=== PATIENT | male | born 1995 | race Caucasian/White ===

== ENCOUNTER 2017-01-26 19:56 | Emergency (ER) | payer MEDICARE, MEDICAID ==
--- NOTE | 2017-01-26 20:14 | Emergency Department Record ---
History of Present Illness - General Chief complaint: Pain Stated complaint: RT ELBOW PAIN Time Seen by Provider: 01/26/17 20:11 Source: Patient Mode of Arrival: Ambulatory - History of Present Illness Initial comments: Patient was on a trampoline prior to arrival when he flipped and collided somehow with another friend, injuring his elbow. He denies other injuries. PMH renal failure on dialysis. MD Complaint: Extremity pain Onset/Timin -: Minutes(s) Location: Right, Elbow Severity scale (1-10): 10 Quality: Aching Consistency: Constant, Getting worse Improves with: Nothing Worsens with: Nothing Associated Symptoms: Denies other symptoms - Related Data Home Medications Medication Instructions Recorded Confirmed Last Taken Acetaminophen 650 mg PO Q4-6HR tab 02/23/16 01/26/17 Unknown Bumetanide 1 mg PO QD tab 02/23/16 01/26/17 06/17/16 Hydrocodone/Acetaminophen [[place] 1 tab PO Q4-6HR tab 02/23/16 01/26/17 Unknown 5mg/325mg] Labetalol HCl 300 mg PO TID tab 02/23/16 01/26/17 06/17/16 Losartan Potassium 100 mg PO QD tab 02/23/16 01/26/17 06/17/16 Minoxidil 5 mg PO BID tab 02/23/16 01/26/17 06/17/16 Atorvastatin Calcium [Lipitor] 20 mg PO QHS 06/17/16 01/26/17 06/16/16 Lacosamide [Vimpat] 100 mg PO DAILY 06/17/16 01/26/17 06/17/16 Previous Rx's Medication Instructions Recorded Hydrocodone/Acetaminophen [[place] 1 each PO Q6HR PRN #14 tablet 01/26/17 5-325 Tablet] Allergies Allergy/AdvReac Type Severity Reaction Status Date / Time No Known Allergies Allergy HYPERSENSIT Verified 06/17/16 17:57 IVITY Travel Screening - Travel/Exposure Within Last 30 Days Have you traveled within the last 30 days?: No Review of Systems Reviewed: No additional complaints except as noted below Constitutional: Reports: As per HPI. Denies: Chills, Fever, Malaise, Night sweats, Weakness, Weight change Eyes: Reports: As per HPI. Denies: Eye discharge, Eye pain, Photophobia, Vision change ENT: Reports: As per HPI. Denies: Congestion, Dental pain, Ear pain, Epistaxis , Hearing loss, Throat pain Respiratory: Reports: As per HPI. Denies: Cough, Dyspnea, Hemoptysis, Stridor, Wheezes Cardiovascular: Reports: As per HPI. Denies: Arrhythmia, Chest pain, Dyspnea on exertion, Edema, Murmurs, Orthopnea, Palpitations, Paroxysmal nocturnal dyspnea, Rheumatic Fever, Syncope Endocrine: Reports: As per HPI. Denies: Fatigue, Heat or cold intolerance, Polydipsia, Polyuria Gastrointestinal: Reports: As per HPI. Denies: Abdominal pain, Constipation, Diarrhea, Hematemesis, Hematochezia, Melena, Nausea, Vomiting Genitourinary: Reports: As per HPI. Denies: Dysuria, Frequency, Hematuria, Incontinence, Retention, Testicular pain, Testicular mass, Urgency Musculoskeletal: Reports: As per HPI. Denies: Arthralgia, Back pain, Gout, Joint swelling, Myalgia, Neck pain Skin: Reports: As per HPI. Denies: Bruising, Change in color, Change in hair/ nails, Lesions, Pruritus, Rash Neurological: Reports: As per HPI. Denies: Abnormal gait, Confusion, Headache, Numbness, Paresthesias, Seizure, Tingling, Tremors, Vertigo, Weakness Psychiatric: Reports: As per HPI. Denies: Anxiety, Auditory hallucinations, Depression, Homicidal thoughts, Suicidal thoughts, Visual hallucinations Hematological/Lymphatic: Reports: As per HPI. Denies: Anemia, Blood Clots, Easy bleeding, Easy bruising, Swollen glands Past Medical History - SOCIAL HISTORY Smoking Status: Never smoker Alcohol Use: None Drug Use: None - RESPIRATORY Hx Respiratory Disorders: No - CARDIOVASCULAR Hx Cardio Disorders: Yes Hx Hypertension: Yes - NEURO Hx Neuro Disorders: No - GI Hx GI Disorders: No - Hx Genitourinary Disorders: Yes Hx Renal Disease: Yes - ENDOCRINE Hx Endocrine Disorders: No - MUSCULOSKELETAL Hx Musculoskeletal Disorders: No - PSYCH Hx Psych Problems: No - HEMATOLOGY/ONCOLOGY Hx Hematology/Oncology Disorders: No Family Medical History Any Significant Family History?: No Physical Exam - General General Appearance: Alert, Oriented x3, Cooperative, No acute distress - Head Head exam: Normal inspection - Eye Eye exam: Normal appearance, PERRL Pupils: Normal accommodation - ENT ENT exam: Normal exam, Mucous membranes moist, Normal external ear exam, Normal orophraynx, TM's normal bilaterally Ear exam: Normal external inspection. negative: External canal tenderness Nasal Exam: Normal inspection. negative: Discharge, Sinus tenderness Mouth exam: Normal external inspection, Tongue normal Teeth exam: Normal inspection. negative: Dental caries Throat exam: Normal inspection. negative: Tonsillar erythema, Tonsillar exudate - Neck Neck exam: Normal inspection, Full ROM. negative: Tenderness - Respiratory Respiratory exam: Normal lung sounds bilaterally. negative: Accessory muscle use, Chest wall tenderness, Respiratory distress - Cardiovascular Cardiovascular Exam: Regular rate, Normal rhythm, Normal heart sounds - GI/Abdominal GI/Abdominal exam: Soft, Normal bowel sounds. negative: Tenderness - Rectal Rectal exam: Deferred - exam: Deferred - Extremities Extremities exam: Normal inspection, Full ROM, Normal capillary refill, Tenderness (Right elbow tender diffusely with inability to perform ROM due to pain. Distal pulses, motor strenth and cap refill intact. Wrist and shoulder nontender.) - Back Back exam: Reports: Normal inspection, Full ROM. Denies: Muscle spasm, Rash noted, Tenderness - Neurological Neurological exam: Alert, Normal gait, Oriented X3, Reflexes normal - Psychiatric Psychiatric exam: Normal affect, Normal mood - Skin Skin exam: Dry, Intact, Normal color, Warm Medical Decision Making - Management Options MDM Management: Additional Work-up Planned (e.g. ADM/Transfer/OP Study) ( Orthopedic consult Dr. Frederick in specialty clinic.) - Data Complexity [facility] Data: X-Ray Ordered and/or Reviewed (Right elbow: Anterior AND posterior fat pad sign indicating likely radial head fx; MRI may be obtained at a later time if indicated. Per radiologist.) Disposition Disposition: Discharge Clinical Impression: Elbow fracture, right Qualifiers: Encounter type: initial encounter Fracture type: closed Qualified Code(s): S42.401A - Unspecified fracture of lower end of right humerus, initial encounter for closed fracture Disposition: Home, Self-Care Condition: (1) Good Instructions: Elbow Fracture (ED) Additional Instructions: Splint, sling. Ice, elevate first 48 hours. Lignite as directed as needed for pain. Tylenol as directed for lesser pain as needed. Do not take both of these meds together as they both contain tylenol. Follow up with Dr. Frederick in Specialty clinic as instructed--bring xray disc with you to appointment. Prescriptions: Hydrocodone/Acetaminophen [[place] 5-325 Tablet] 1 each PO Q6HR PRN #14 tablet PRN Reason: Pain - Severe (8-10) Referrals: JOCELYN FREDERICK [DOCTOR OF OSTEOPATH] - Forms: Patient Portal Access
[2017-01-26] MEDS ORDERED: HYDROCODONE/APAP 10/325 TABLET PO ONE (20:47)
[2017-01-26] MEDS ORDERED: HYDROCODONE/APAP 5/325MG TABLET PO ONE (21:43)
--- NOTE | 2017-01-28 10:33 | RADIOLOGY REPORT ---
EXAM: RIGHT ELBOW, THREE VIEWS HISTORY: PATIENT WAS ON A TRAMPOLINE AND SUSTAINED INJURED. TECHNIQUE: Three views of the right elbow were provided without comparison studies. FINDINGS: Significant antecubital and olecranon fat pad prominence is noted. There is a questionable nondisplaced fracture of the radial head. Enthesophytes are identified within the region posterior to the olecranon. IMPRESSION: SIGNIFICANT ANTECUBITAL AND OLECRANON FAT PAD PROMINENCE IS NOTED WITH QUESTIONABLE FRACTURE OF THE RADIAL HEAD. IF THERE IS FURTHER CLINICAL CONCERN THEN MRI OF THE RIGHT ELBOW CAN BE OBTAINED FOR FURTHER EVALUATION. JOB NUMBER: [id number] MTDD
== END 2017-01-26 21:59 | disposition home or self-care (01) ==
LOC: ER 19:56
DX: S52.121A Displaced fracture of head of right radius, initial encounter for closed fracture (principal); W51.XXXA Accidental striking against or bumped into by another person, initial encounter; Y93.44 Activity, trampolining
CPT/HCPCS: 29105; 99283 ×2; 73080; J3490

== ENCOUNTER 2017-01-29 04:29 | Emergency (ER) | payer MEDICARE, MEDICAID ==
[2017-01-29] MEDS ORDERED: PROMETHAZINE HCL 25 MG/ML VIAL IM ONE (04:52)
[2017-01-29] MEDS ORDERED: HYDROMORPHONE HCL 1 MG/ML CPJ IM ONE (04:52)
--- NOTE | 2017-01-29 04:58 | Emergency Department Record ---
History of Present Illness - General Chief Complaint: Recheck - Other Stated Complaint: PAIN Time Seen by Provider: 01/29/17 04:45 Source: Patient Mode of arrival: Ambulatory Limitations: No limitations - History of Present Illness Initial Comments: pt has pain from radial head fx on saturday. he is to f/u w dr agustin BUSTAMANTE Complaint: Other Onset/Timin -: Days(s) Initial Visit For: Other Returns Today for: Other Symptoms Since Prior Visit: Worsening pain Associated Symptoms: None Treatments Prior to Arrival: Splint(s) - Related Data Home Medications Medication Instructions Recorded Confirmed Last Taken Acetaminophen 650 mg PO Q4-6HR tab 02/23/16 01/29/17 Unknown Bumetanide 1 mg PO QD tab 02/23/16 01/29/17 06/17/16 Hydrocodone/Acetaminophen [[place] 1 tab PO Q4-6HR tab 02/23/16 01/29/17 Unknown 5mg/325mg] Labetalol HCl 300 mg PO TID tab 02/23/16 01/29/17 06/17/16 Losartan Potassium 100 mg PO QD tab 02/23/16 01/29/17 06/17/16 Minoxidil 5 mg PO BID tab 02/23/16 01/29/17 06/17/16 Atorvastatin Calcium [Lipitor] 20 mg PO QHS 06/17/16 01/29/17 06/16/16 Lacosamide [Vimpat] 100 mg PO DAILY 06/17/16 01/29/17 06/17/16 Allergies Allergy/AdvReac Type Severity Reaction Status Date / Time No Known Allergies Allergy HYPERSENSIT Verified 06/17/16 17:57 IVITY Travel Screening - Travel/Exposure Within Last 30 Days Have you traveled within the last 30 days?: No Review of Systems Reviewed: No additional complaints except as noted below Constitutional: Reports: As per HPI. Denies: Chills, Fever, Malaise, Night sweats, Weakness, Weight change Eyes: Reports: As per HPI. Denies: Eye discharge, Eye pain, Photophobia, Vision change ENT: Reports: As per HPI. Denies: Congestion, Dental pain, Ear pain, Epistaxis , Hearing loss, Throat pain Respiratory: Reports: As per HPI. Denies: Cough, Dyspnea, Hemoptysis, Stridor, Wheezes Cardiovascular: Reports: As per HPI. Denies: Arrhythmia, Chest pain, Dyspnea on exertion, Edema, Murmurs, Orthopnea, Palpitations, Paroxysmal nocturnal dyspnea, Rheumatic Fever, Syncope Endocrine: Reports: As per HPI. Denies: Fatigue, Heat or cold intolerance, Polydipsia, Polyuria Gastrointestinal: Reports: As per HPI. Denies: Abdominal pain, Constipation, Diarrhea, Hematemesis, Hematochezia, Melena, Nausea, Vomiting Genitourinary: Reports: As per HPI. Denies: Dysuria, Frequency, Hematuria, Incontinence, Retention, Testicular pain, Testicular mass, Urgency Musculoskeletal: Reports: As per HPI. Denies: Arthralgia, Back pain, Gout, Joint swelling, Myalgia, Neck pain Skin: Reports: As per HPI. Denies: Bruising, Change in color, Change in hair/ nails, Lesions, Pruritus, Rash Neurological: Reports: As per HPI. Denies: Abnormal gait, Confusion, Headache, Numbness, Paresthesias, Seizure, Tingling, Tremors, Vertigo, Weakness Psychiatric: Reports: As per HPI. Denies: Anxiety, Auditory hallucinations, Depression, Homicidal thoughts, Suicidal thoughts, Visual hallucinations Hematological/Lymphatic: Reports: As per HPI. Denies: Anemia, Blood Clots, Easy bleeding, Easy bruising, Swollen glands Past Medical History - SOCIAL HISTORY Smoking Status: Never smoker - RESPIRATORY Hx Respiratory Disorders: No - CARDIOVASCULAR Hx Cardio Disorders: Yes Hx Hypertension: Yes - NEURO Hx Neuro Disorders: No - GI Hx GI Disorders: No - Hx Genitourinary Disorders: Yes Hx Renal Disease: Yes - ENDOCRINE Hx Endocrine Disorders: No - MUSCULOSKELETAL Hx Musculoskeletal Disorders: No - PSYCH Hx Psych Problems: No - HEMATOLOGY/ONCOLOGY Hx Hematology/Oncology Disorders: No Family Medical History Any Significant Family History?: No Physical Exam - General General Appearance: Alert, Oriented x3, Cooperative, Mild distress - Head Head exam: Normal inspection - Eye Eye exam: Normal appearance, PERRL, EOMI Pupils: Normal accommodation - ENT ENT exam: Normal exam, Mucous membranes moist, Normal external ear exam, Normal orophraynx, TM's normal bilaterally Ear exam: Normal external inspection. negative: External canal tenderness Nasal Exam: Normal inspection. negative: Discharge, Sinus tenderness Mouth exam: Normal external inspection, Tongue normal Teeth exam: Normal inspection. negative: Dental caries Throat exam: Normal inspection. negative: Tonsillar erythema, Tonsillar exudate - Neck Neck exam: Normal inspection, Full ROM. negative: Tenderness - Respiratory Respiratory exam: Normal lung sounds bilaterally. negative: Respiratory distress - Cardiovascular Cardiovascular Exam: Regular rate, Normal rhythm, Normal heart sounds - GI/Abdominal GI/Abdominal exam: Soft, Normal bowel sounds. negative: Tenderness - Rectal Rectal exam: Deferred - exam: Deferred - Extremities Extremities exam: Joint swelling, Normal capillary refill, Tenderness, Other ( ecchymosis). negative: Full ROM - Back Back exam: Reports: Normal inspection, Full ROM. Denies: Muscle spasm, Rash noted, Tenderness - Neurological Neurological exam: Alert, CN II-XII intact, Normal gait, Oriented X3 - Psychiatric Psychiatric exam: Normal affect, Normal mood - Skin Skin exam: Dry, Intact, Normal color, Warm Course Vital Signs 01/29/17 04:34 Temperature 98.2 F Pulse Rate 65 Respiratory 18 Rate Blood Pressure 178/117 Pulse Ox 98 Disposition Disposition: Discharge Clinical Impression: Radial head fracture Qualifiers: Encounter type: subsequent encounter Fracture type: closed Fracture alignment: nondisplaced Laterality: right Fracture healing: with routine healing Qualified Code(s): S52.124D - Nondisplaced fracture of head of right radius, subsequent encounter for closed fracture with routine healing Disposition: Home, Self-Care Condition: (1) Good Instructions: Elbow Fracture (ED) Additional Instructions: follow up with dr velez. return sooner if worse. ice and elevate Forms: Patient Portal Access
== END 2017-01-29 05:43 | disposition home or self-care (01) ==
LOC: ER 04:29
DX: G89.11 Acute pain due to trauma (principal); S52.124A Nondisplaced fracture of head of right radius, initial encounter for closed fracture; W51.XXXA Accidental striking against or bumped into by another person, initial encounter; Y93.44 Activity, trampolining
CPT/HCPCS: 99283 ×2; 96372; J1170; J2550

== ENCOUNTER 2017-02-04 20:19 | Emergency (ER) | payer MEDICARE, MEDICAID ==
--- NOTE | 2017-02-04 21:36 | Emergency Department Record ---
History of Present Illness - General Chief complaint: Extremity Problem Stated complaint: R ARM REINJURY Time Seen by Provider: 02/04/17 20:24 Source: Patient Mode of Arrival: Ambulatory Limitations: No limitations - History of Present Illness Initial comments: pt has a hx of radial head fx and has seen dr velez recently. he then fell 2 days ago in the shower hitting his elbow again and has increased pain and swelling. MD Complaint: Joint pain, Joint swelling Onset/Timin -: Days(s) Location: Right, Elbow History of Same: Yes Radiation: None Consistency: Constant Improves with: Nothing Worsens with: Nothing Associated Symptoms: Denies other symptoms - Related Data Home Medications Medication Instructions Recorded Confirmed Last Taken Acetaminophen 650 mg PO Q4-6HR tab 02/23/16 02/04/17 02/04/17 Bumetanide 1 mg PO QD tab 02/23/16 02/04/17 02/04/17 Hydrocodone/Acetaminophen [[place] 1 tab PO Q4-6HR tab 02/23/16 02/04/17 Unknown 5mg/325mg] Labetalol HCl 300 mg PO BID tab 02/23/16 02/04/17 02/04/17 Losartan Potassium 100 mg PO QD tab 02/23/16 02/04/17 02/04/17 Minoxidil 5 mg PO BID tab 02/23/16 02/04/17 02/04/17 Atorvastatin Calcium [Lipitor] 20 mg PO QHS 06/17/16 02/04/17 02/04/17 Lacosamide [Vimpat] 100 mg PO DAILY 06/17/16 02/04/17 02/04/17 Previous Rx's Medication Instructions Recorded Hydrocodone/Acetaminophen [[place] 1 each PO QID #7 tablet 02/04/17 5-325 Tablet] Allergies Allergy/AdvReac Type Severity Reaction Status Date / Time No Known Allergies Allergy HYPERSENSIT Verified 06/17/16 17:57 IV[facility] Travel Screening - Travel/Exposure Within Last 30 Days Have you traveled within the last 30 days?: No Review of Systems Reviewed: No additional complaints except as noted below Constitutional: Reports: As per HPI. Denies: Chills, Fever, Malaise, Night sweats, Weakness, Weight change Eyes: Reports: As per HPI. Denies: Eye discharge, Eye pain, Photophobia, Vision change ENT: Reports: As per HPI. Denies: Congestion, Dental pain, Ear pain, Epistaxis , Hearing loss, Throat pain Respiratory: Reports: As per HPI. Denies: Cough, Dyspnea, Hemoptysis, Stridor, Wheezes Cardiovascular: Reports: As per HPI. Denies: Arrhythmia, Chest pain, Dyspnea on exertion, Edema, Murmurs, Orthopnea, Palpitations, Paroxysmal nocturnal dyspnea, Rheumatic Fever, Syncope Endocrine: Reports: As per HPI. Denies: Fatigue, Heat or cold intolerance, Polydipsia, Polyuria Gastrointestinal: Reports: As per HPI. Denies: Abdominal pain, Constipation, Diarrhea, Hematemesis, Hematochezia, Melena, Nausea, Vomiting Genitourinary: Reports: As per HPI. Denies: Dysuria, Frequency, Hematuria, Incontinence, Retention, Testicular pain, Testicular mass, Urgency Musculoskeletal: Reports: As per HPI. Denies: Arthralgia, Back pain, Gout, Joint swelling, Myalgia, Neck pain Skin: Reports: As per HPI. Denies: Bruising, Change in color, Change in hair/ nails, Lesions, Pruritus, Rash Neurological: Reports: As per HPI. Denies: Abnormal gait, Confusion, Headache, Numbness, Paresthesias, Seizure, Tingling, Tremors, Vertigo, Weakness Psychiatric: Reports: As per HPI. Denies: Anxiety, Auditory hallucinations, Depression, Homicidal thoughts, Suicidal thoughts, Visual hallucinations Hematological/Lymphatic: Reports: As per HPI. Denies: Anemia, Blood Clots, Easy bleeding, Easy bruising, Swollen glands Past Medical History - SOCIAL HISTORY Smoking Status: Never smoker Alcohol Use: None Drug Use: None - RESPIRATORY Hx Respiratory Disorders: No - CARDIOVASCULAR Hx Cardio Disorders: Yes Hx Hypertension: Yes - NEURO Hx Neuro Disorders: No - GI Hx GI Disorders: No - Hx Genitourinary Disorders: Yes Hx Renal Disease: Yes (Dialysis 3x/week) - ENDOCRINE Hx Endocrine Disorders: No - MUSCULOSKELETAL Hx Musculoskeletal Disorders: No - PSYCH Hx Psych Problems: No - HEMATOLOGY/ONCOLOGY Hx Hematology/Oncology Disorders: No Family Medical History Any Significant Family History?: No Family Hx Comment (NOT TO BE USED IN PLACE OF ITEMS BELOW): denies Physical Exam - General General Appearance: Alert, Oriented x3, Cooperative, Mild distress - Head Head exam: Normal inspection - Eye Eye exam: Normal appearance, PERRL, EOMI Pupils: Normal accommodation - ENT ENT exam: Normal exam, Mucous membranes moist, Normal external ear exam, Normal orophraynx Ear exam: Normal external inspection. negative: External canal tenderness Nasal Exam: Normal inspection. negative: Discharge, Sinus tenderness Mouth exam: Normal external inspection, Tongue normal Teeth exam: Normal inspection. negative: Dental caries Throat exam: Normal inspection. negative: Tonsillar erythema, Tonsillar exudate - Neck Neck exam: Normal inspection, Full ROM. negative: Tenderness - Respiratory Respiratory exam: Normal lung sounds bilaterally. negative: Respiratory distress - Cardiovascular Cardiovascular Exam: Regular rate, Normal rhythm, Normal heart sounds - GI/Abdominal GI/Abdominal exam: Soft, Normal bowel sounds. negative: Tenderness - Rectal Rectal exam: Deferred - exam: Deferred - Extremities Extremities exam: Joint swelling, Normal capillary refill, Tenderness. negative : Full ROM - Back Back exam: Reports: Normal inspection, Full ROM. Denies: Muscle spasm, Rash noted, Tenderness - Neurological Neurological exam: Alert, CN II-XII intact, Normal gait, Oriented X3 - Psychiatric Psychiatric exam: Normal affect, Normal mood - Skin Skin exam: Dry, Intact, Normal color, Warm Course Vital Signs 02/04/17 20:27 Temperature 98.2 F Pulse Rate [ 81 Pulse Ox Probe] Respiratory 20 Rate Blood Pressure 157/110 [Right Arm] Pulse Ox 98 Disposition Disposition: Discharge Clinical Impression: Contusion Qualifiers: Encounter type: initial encounter Contusion area: elbow Laterality: right Qualified Code(s): S50.01XA - Contusion of right elbow, initial encounter Disposition: Home, Self-Care Condition: (1) Good Instructions: Contusion in Adults (ED) Additional Instructions: follow up with dr velez this week. ice and elevate. return sooner if worse. Prescriptions: Hydrocodone/Acetaminophen [[place] 5-325 Tablet] 1 each PO QID #7 tablet Forms: Patient Portal Access
[2017-02-04] MEDS ORDERED: HYDROCODONE/APAP 5/325MG TABLET PO ONE (22:00)
--- NOTE | 2017-02-04 23:43 | RADIOLOGY REPORT ---
EXAM: ELBOW, RIGHT 3 VIEWS HISTORY: PAIN. TECHNIQUE: Three views of the right elbow were performed. COMPARISON: 01/26/17. FINDINGS: There continues to be elevation of the anterior fat pad. A definitive fracture is not identified. The previously described radial head fracture deformity is not well visualized on today's examination. There is calcification at the triceps insertion. IMPRESSION: NO DEFINITIVE FRACTURE DEFORMITY IS APPRECIATED ON TODAY'S EXAMINATION. THERE IS ELEVATION OF THE ANTERIOR FAT PAD. JOB NUMBER: [id number] MTDD
== END 2017-02-04 22:07 | disposition home or self-care (01) ==
LOC: ER 20:19
DX: S50.01XA Contusion of right elbow, initial encounter (principal); W18.2XXA Fall in (into) shower or empty bathtub, initial encounter; Y93.E1 Activity, personal bathing and showering
CPT/HCPCS: 99283

== ENCOUNTER 2017-03-27 05:06 | Emergency (ER) | payer MEDICARE, MEDICAID ==
--- NOTE | 2017-03-27 05:46 | Emergency Department Record ---
History of Present Illness - General Chief complaint: Pain Stated complaint: RT SHOULDER PAIN Time Seen by Provider: 03/27/17 05:20 Source: Patient Mode of Arrival: Ambulatory Limitations: No limitations - History of Present Illness Initial comments: The patient is here due to a 4 hour hx of R shoulder pain. The onset was gradual at home and the pain is mainly over the lateral surface of the R shoulder and is much worse with ROM. He denies any trauma, fall or injury. The patient did take a Morning Sun at home 2 hours ago but there was no relief. There is no R arm weakness, numbness or tingling. The patient denies any hx of similar issues. He does have a hx of renal failure and is on Hemodialysis 3 times a week. He also did drive himself here to the ER. 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 MD Complaint: Extremity pain, Joint pain Onset/Timin -: Hour(s) Location: Right - Related Data Home Medications Medication Instructions Recorded Confirmed Last Taken Bumetanide 1 mg PO QD tab 02/23/16 03/27/17 03/26/17 Hydrocodone/Acetaminophen [Morning Sun 1 tab PO Q4-6HR tab 02/23/16 03/27/17 03/27/17 5mg/325mg] Labetalol HCl 300 mg PO BID tab 02/23/16 03/27/17 03/26/17 Losartan Potassium 100 mg PO QD tab 02/23/16 03/27/17 03/26/17 Minoxidil 5 mg PO BID tab 02/23/16 03/27/17 03/26/17 Atorvastatin Calcium [Lipitor] 20 mg PO QHS 06/17/16 03/27/17 03/26/17 Lacosamide [Vimpat] 100 mg PO DAILY 06/17/16 03/27/17 03/26/17 Previous Rx's Medication Instructions Recorded Hydrocodone/Acetaminophen [Morning Sun 1 - 2 each PO QID #15 tablet 03/27/17 5-325 Tablet] Allergies Allergy/AdvReac Type Severity Reaction Status Date / Time No Known Allergies Allergy HYPERSENSIT Verified 06/17/16 17:57 IVITY Travel Screening - Travel/Exposure Within Last 30 Days Have you traveled within the last 30 days?: No - Travel Symptoms Symptom Screening: None Review of Systems Constitutional: Denies: Chills, Fever Eyes: Denies: Eye discharge ENT: Denies: Congestion Respiratory: Denies: Cough, Dyspnea Cardiovascular: Denies: Chest pain Past Medical History - SOCIAL HISTORY Smoking Status: Never smoker Alcohol Use: None Drug Use: None - RESPIRATORY Hx Respiratory Disorders: No - CARDIOVASCULAR Hx Cardio Disorders: Yes Hx Hypertension: Yes - NEURO Hx Neuro Disorders: No - GI Hx GI Disorders: No - Hx Genitourinary Disorders: Yes Hx Renal Disease: Yes (Dialysis 3x/week, MWF) - ENDOCRINE Hx Endocrine Disorders: No - MUSCULOSKELETAL Hx Musculoskeletal Disorders: No - PSYCH Hx Psych Problems: No - HEMATOLOGY/ONCOLOGY Hx Hematology/Oncology Disorders: No Family Medical History Any Significant Family History?: No Family Hx Comment (NOT TO BE USED IN PLACE OF ITEMS BELOW): denies Physical Exam - General General Appearance: Alert, Oriented x3, Cooperative, No acute distress - Head Head exam: Atraumatic, Normocephalic, Normal inspection - Eye Eye exam: Normal appearance, PERRL - Neck Neck exam: Normal inspection, Full ROM. negative: Tenderness - Respiratory Respiratory exam: Normal lung sounds bilaterally. negative: Respiratory distress - Cardiovascular Cardiovascular Exam: Regular rate, Normal rhythm, Normal heart sounds - Extremities Extremities exam: Normal inspection, Normal capillary refill, Tenderness (There is tenderness to the mid deltoid area. There is no swelling, bruising, or warmth appreciated.), Other (The distal R arm is NVI.). negative: Full ROM ( There is decreased full ROM of the R shoulder due to pain but he is able to abduct to 90 degrees.) Course Vital Signs 03/27/17 05:16 Temperature 98.0 F Pulse Rate [ 60 Pulse Ox Probe] Respiratory 18 Rate Blood Pressure 160/98 [Left Arm] Pulse Ox 100 - Reevaluation(s) Reevaluation #1: I explained to the patient that the xrays appear normal. 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 He is to use the arm sling for 5 days and take Morning Sun for pain and see his PCP early next week if not better. 03/27/17 06:15 Medical Decision Making - Data Complexity MDM Data: X-Ray Ordered and/or Reviewed - Radiology Data Radiology results: Image reviewed (R shoulder: Neg) Disposition Disposition: Discharge Clinical Impression: Acute pain of right shoulder Disposition: Home, Self-Care Condition: (1) Good Instructions: Arthralgia (ED) Additional Instructions: Please use ice to the R shoulder during the day and use the arm sling for 5 days. Please do not pain with the R arm. Take Morning Sun for pain. Please see your PCP if not better for pain early next week. Return to the ER for any increased pain, fever, swelling or rashes. Prescriptions: Hydrocodone/Acetaminophen [Morning Sun 5-325 Tablet] 1 - 2 each PO QID #15 tablet Forms: Patient Portal Access Time of Disposition: 06:18 Quality - Quality Measures Quality Measures: N/A - Blood Pressure Screening View Details: Yes Does Patient Have Any of the Following: No Blood Pressure Classification: Hypertensive Reading Systolic Measurement: 160 Diastolic Measurement: 98 Screening for High Blood Pressure: < Pre-Hypertensive BP, F/U Documented > [ [id number]] Pre-Hypertensive Follow-up Interventions: Referral to alternative/primary care provider.
[2017-03-27] MEDS: HYDROCODONE/APAP 5/325MG TABLET PO ONE (06:24)
--- NOTE | 2017-03-28 14:12 | RADIOLOGY REPORT ---
EXAM: RIGHT SHOULDER HISTORY: RIGHT SHOULDER PAIN BEGAN WHILE SLEEPING, NO KNOWN INJURY. TECHNIQUE: Three views of the right shoulder were obtained. Comparison: None. FINDINGS: There is a very small amount of calcification adjacent to the humeral head posterolaterally which may be associated with the rotator cuff. This appears chronic in nature. The right shoulder appears otherwise negative. IMPRESSION: SMALL CALCIFICATION ADJACENT TO THE POSTEROLATERAL ASPECT OF THE HUMERAL HEAD MAY BE WITHIN THE ROTATOR CUFF. THE RIGHT SHOULDER IS OTHERWISE NEGATIVE. JOB NUMBER: [id number] MTDD
== END 2017-03-27 06:27 | disposition home or self-care (01) ==
LOC: ER 05:06
DX: M25.511 Pain in right shoulder (principal)
CPT/HCPCS: 99283